=== PATIENT | female | born 1990 | race African-American/Black ===

== ENCOUNTER 2016-04-24 04:17 | Emergency (ER) | payer SELFPAY ==
[~2016-04-24] VITALS: Ht 165.1 cm; Wt 79.7 kg
[~2016-04-24 04:17] MED LIST: FLONASE16 G1 NS; FLOVENT 44120 INHALA IH; IRON160 M1 PO; LEVOFLOXACIN750 MG PO; PREDNISONE20 MG PO; PROVENTIL,2.5 MG/3 M IH; REGLAN10 MG PO; VALIUM2 MG PO
[2016-04-24] MEDS ORDERED: TOBREX5 ML BOTH EYES (05:40)
[2016-04-24] MEDS ORDERED: MEDROL DOSEPAK4 MG PO (05:40)
[2016-04-24 06:20] VITALS: BP 122/93
== END 2016-04-24 06:22 | disposition home or self-care (01) ==
LOC: EME 04:17
DX: J02.9 Acute pharyngitis, unspecified (principal); H10.30 Unspecified acute conjunctivitis, unspecified eye; J45.909 Unspecified asthma, uncomplicated
CPT/HCPCS: 87651 90; 99281; 99284; J7512